=== PATIENT | female | born 1985 | race Caucasian/White ===

== ENCOUNTER 2018-05-07 20:34 | Inpatient (IN) | payer BC ==
[~2018-05-07] VITALS: Ht 167.6 cm; Wt 87.7 kg
[2018-05-07] VITALS (11 sets, daily range): BP systolic 109–162; BP diastolic 58–95; PULSE 64–94; TEMP 98.2
[~2018-05-07 20:34] MED LIST: ALBUTEROL SULFAT8 MG; ASPIRIN 81M81 MG/TA2 PO; EPA/GLA1 SGL PO; MOTRIN 600600 MG/TAB PO; MOTRIN 800800 MG/TAB PO; NUVARING1 ICR VG; PERCOCET 325 MG1 TA2 PO; PRENATAL1 TA1 PO; SENOKOT S 50 MG1 TAB PO; VITAMIN D 400400 IU PO
[2018-05-07 22:23] LABS: BASO % 0.2 % (0.0-2.0); EOS # 0.1 (0.0-0.7); EOS % 1.1 % (0-4.0); GRAN # 5.6 (1.4-6.5); GRAN % 67.4 % (42.2-75.2); HEMATOCRIT 39.9 % (37.0-47.0); HEMOGLOBIN 13.2 g/dl (12.5-16.0); LYMPH # 1.8 (1.2-3.4); LYMPH % 21.2 % (20.0-51.0); MEAN CELL VOLUME 92 fl (80.0-100.0); MEAN CORPUSCULAR HEMOGLOBIN 31 pg (27.0-31.0); MEAN CORPUSCULAR HGB CONC 33 g/dl (33.0-37.0); MONO # 0.8 (0.1-0.6); MONO % 9.5 % (1.7-9.3); PLATELET COUNT 114 K/mm3 (130-400); RED BLOOD COUNT 4.32 M/mm3 (4.10-5.30); REDCELL DISTRIBUTION WIDTH-CV 14.8 % (11.5-14.5)
[2018-05-08] VITALS (16 sets, daily range): BP systolic 115–141; BP diastolic 61–93; PULSE 59–97; TEMP 98.2–98.8
[2018-05-08] MEDS ORDERED: MOTRIN 800800 MG/TAB PO (08:30)
[2018-05-08] MEDS ORDERED: PERCOCET 325 MG1 TA2 PO (08:30)
[2018-05-09 08:00] VITALS: BP 139/91; PULSE 69; TEMP 97.7
== END 2018-05-09 12:05 | disposition home or self-care (01) | DRG 807 ==
LOC: LDRO 20:34 → LDR 21:14 → OB 21:15
PROVIDERS: Obstetrics & Gynecology
PROC: 10E0XZZ Delivery of Products of Conception, External Approach (ICD-10-PCS; principal; 2018-05-07)
PROC: 0KQM0ZZ Repair Perineum Muscle, Open Approach (ICD-10-PCS; 2018-05-07)
DX: O70.1 Second degree perineal laceration during delivery (principal); Z37.0 Single live birth; Z3A.40 40 weeks gestation of pregnancy; O99.824 Streptococcus B carrier state complicating childbirth; O99.62 Diseases of the digestive system complicating childbirth; K21.9 Gastro-esophageal reflux disease without esophagitis; Z28.21 Immunization not carried out because of patient refusal
CPT/HCPCS: J2540; J2590; J7120

== ENCOUNTER → 2020-10-10 | Outpatient (CLI) | payer BC | LOC: MC.RAD 15:28 | DX: Z12.31 Encounter for screening mammogram for malignant neoplasm of breast (principal); N64.89 Other specified disorders of breast; Z80.3 Family history of malignant neoplasm of breast ==

== ENCOUNTER → 2020-10-20 | Outpatient (CLI) | payer BC | LOC: MC.RAD 10:55 | DX: N64.89 Other specified disorders of breast (principal) ==